=== PATIENT | male | born 1955 | race Caucasian/White ===

== ENCOUNTER 2019-02-19 09:17 | Day surgery (SDC) ==
[2019-02-19 10:14] VITALS: TEMP 98.6
[2019-02-19] MEDS ORDERED: VERSED ONE (11:30)
[2019-02-19] MEDS ORDERED: LIDOCAINE HCL 2% LUER-JET ONE (11:30)
[2019-02-19] MEDS ORDERED: DIPRIVAN 20 ML VIAL IVP ONE (11:30)
[2019-02-20 10:32] VITALS: BP 124/68
--- NOTE | 2019-02-20 11:00 | OP ---
INDICATIONS FOR PROCEDURE: 63 YEAR OLD GENTLEMAN PRESENTS FOR COLONOSCOPY EXAM AND ENDOSCOPY. HE IS FOUND TO HAVE HEME POSITIVE STOOLS. HE HAS A PAST HISTORY OF ADENOMATOUS COLON POLYPS. MEDICATIONS: SEE ANESTHESIA NOTES. PROCEDURE: ENDOSCOPY COLONOSCOPY REPORT: The risks, benefits, alternatives and limitations were discussed in detail with the patient. Informed consent was obtained. After adequate sedation was achieved, the video endoscope was introduced in the posterior pharynx and esophagus under direct vision and easily advanced down to the second portion of the duodenum. I then slowly withdrew. The duodenal mucosa appeared unremarkable as did the duodenal bulb. The antrum body is relatively unremarkable. The scope was retroflexed to look at the cardia and fundus which was unremarkable. The scope was anteflexed and withdrawn back through the esophagus which was unremarkable. The patient tolerated the procedure well with stable vital signs and pulse oximetry throughout. The patient's bed was turned. I digital rectal exam revealed good tones and no masses. The colonoscope was introduced into the rectum and advanced under direct visual guidance to the cecum. The cecum was identified by the appendiceal orifice and IC valve. I then slowly withdrew the scope in circumferential manner and examined the mucosa quite carefully. I looked on the proximal and distal sides of folds and flexures as best as possible. I was able to retroflex the scope in the right colon as well as left colon to increase visualization. The colonic mucosa was unremarkable in it's entire length. On retroflex view of the anal canal there was small internal hemorrhoid. The prep was good. The withdraw time was 7 minutes and 19 seconds. The patient tolerated the procedure well with stable vital signs and pulse oximetry throughout. IMPRESSION: 1. Normal upper endoscopy exam 2. Small internal hemorrhoid 3. Otherwise normal colonoscopy exam RECOMMENDATIONS: 1. High fiber diet 2. Office visit as needed 3. With his past history of adenomatous polyp I suggest a surveillance colonoscopy examination again in 5 years or sooner if there are signs or symptoms to indicate otherwise. CC: Dr. Arreaga ADDENDUM: Not mentioned in the colonoscopy report the patient did have a few small mouth diverticulitis scattered throughout the sigmoid. MTDD
== END 2019-02-19 13:00 | disposition home or self-care (01) ==
LOC: SURG 09:17
PROVIDERS: ATTEND Internal Medicine Gastroenterology
DX: R19.5 Other fecal abnormalities (principal); K62.5 Hemorrhage of anus and rectum; K64.8 Other hemorrhoids; K57.92 Diverticulitis of intestine, part unspecified, without perforation or abscess without bleeding; Z86.010 Personal history of colon polyps
CPT/HCPCS: 82962